=== PATIENT | male | born 1940 | race Two or more races ===

== ENCOUNTER 2017-12-31 13:00 | Outpatient (CLI) | payer MEDICARE, OTHER ==
[2017-12-31] MEDS ORDERED: CELLCEPT200 MG/1 M PO (14:05)
[2017-12-31] MEDS ORDERED: TAMSULOSIN HCL0.4 MG ORAL (14:05)
[2017-12-31] MEDS ORDERED: METFORMIN HCL500 M1 ORAL (14:05)
[2017-12-31] MEDS ORDERED: PREDNISONE5 M4 PO (14:05)
[2017-12-31] MEDS ORDERED: NEXIUM40 MG ORAL (14:05)
--- NOTE | 2017-12-31 14:08 | GI Initial Consult Note ---
History of Present Illness General Date patient seen: Dec 31, 2017 Time patient seen: 14:02 Referring physician: SAMIRA Reason for Consultation: COLONOSCOPY Present Illness HPI 77 year old male referred by Dr. Bernal for evaluation of possible colonoscopy. The past presents today with c/o of N/V, loss of appetite and constipation. His last colonoscopy was performed 5 years ago, found with no colonic polyps. Has history of GERD, DM and BPH. Denies any unintentional weight loss or changes in dietary habits. No signs of abuse or neglect. Patient is not fall risk. Home Meds Reported Medications Prednisone (PREDNISONE) Unknown Strength Tab.ds.pk, PO, PACK 12/31/17 Tamsulosin Hcl (TAMSULOSIN HCL*) Unknown Strength Cap.er.24h, ORAL BEDTIME, CAP 12/31/17 Mycophenolate Mofetil (CELLCEPT) Unknown Strength Susp.recon, PO, ML 12/31/17 Metformin Hcl* (METFORMIN HCL*) Unknown Strength Tablet, ORAL TWICE A DAY, TAB 12/31/17 Esomeprazole Magnesium (NEXIUM) Unknown Strength Capsule.dr, ORAL DAILY, CAP 12/31/17 Allergies: Coded Allergies: Aspirin (Unverified Allergy, Severe, 12/31/17) Patient History History Provided By: Patient PMH Narrative See HPI Past Surgical History: Kidney Transplant 2014 Abdominal surgery with partial colectomy abdominal hernia repair Pertinent Family History: none Social History: Denies: smoking, alcohol use, drug use, other Review of Systems All Other Systems: negative except mentioned in HPI Physical Exam T 98.2 BP 143/68 P 90 95 RA HT 5'7 WT 160 lbs Sp02 EP Interpretation: reviewed, normal General Appearance: well appearing, no apparent distress, alert Head: normocephalic EENT: PERRL/EOMI, normal ENT inspection Neck: supple Respiratory: normal breath sounds, no respiratory distress Cardiovascular: normal rate Gastrointestinal: normal inspection, non tender, soft, normal bowel sounds, non -distended Rectal: deferred Genitourinary: deferred Musculoskeletal: normal inspection, back normal Neurologic: normal inspection, alert, oriented x3, responsive Psychiatric: normal inspection, judgement/insight normal, memory normal Skin: normal inspection, normal color, no rash, warm/dry, palpation normal, well hydrated Lymphatic: normal inspection, no adenopathy GI: Plan Problems: (1) Nausea & vomiting (2) Poor appetite (3) Constipation (4) GERD (gastroesophageal reflux disease) (5) Diabetes mellitus (6) BPH (benign prostatic hyperplasia) Plan At this time, we will defer colonoscopy given age and previous results >> d/w with patient and cont ppi bowel regime and dietary changes RTC prn Seen with Dr. Lara. Thank you for this patient referral. The patient was seen and examined at bedside and all new and available data was reviewed in the patients chart. I agree with the above findings, impression and plan. (Patient seen earlier today. Signature stamp does not reflect patient encounter time.). - MD Dalila [facility]Cle[facility] P[facility] Dec 31, 2017 14:08
== END 2017-12-31 13:35 | disposition home or self-care (01) ==
LOC: PAN 13:00
DX: R11.2 Nausea with vomiting, unspecified (principal); K59.00 Constipation, unspecified; K21.9 Gastro-esophageal reflux disease without esophagitis; E11.9 Type 2 diabetes mellitus without complications; N40.0 Benign prostatic hyperplasia without lower urinary tract symptoms; Z94.0 Kidney transplant status; Z88.6 Allergy status to analgesic agent
CPT/HCPCS: 99202